=== PATIENT | female | born 1980 | race Caucasian/White ===

== ENCOUNTER 2022-08-13 13:11 | Outpatient (REF) | payer OTHER, SELFPAY ==
[2022-08-13 13:51] LABS: COVID-19 Test Negative (Negative)
== END 2022-08-13 13:12 | disposition home or self-care (01) ==
LOC: HO.LAB 13:11
PROVIDERS: Visit Provider Internal Medicine
DX: Z20.822 Contact with and (suspected) exposure to COVID-19 (principal)
CPT/HCPCS: 87635; C9803

== ENCOUNTER 2025-06-29 12:50 | Outpatient (AMB) | payer OTHER, SELFPAY ==
[2025-06-29 13:03] VITALS: BP 102/60; PULSE 85; RESP 18; TEMP 36.1; O2SAT 99; BMI 21.6
--- NOTE | 2025-06-29 13:03 | A.OFFPC_ITS ---
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 Operator Name: [id number] Information Interpreted: clinical only Accompanied by: Self / Same As Patient Allergies No Known Allergies (No Known Allergies*) Allergy (Unverified 06/29/25 13:17) Medication List - Last Reconciled 06/29/25 by HECTOR Kim meclizine 25 mg PO DAILY PRN Tobacco use date assessed: 06/29/25 Dental Screening Dental Screen Date: 06/29/25 Did you have a dental visit in the last 12 months?: Yes Did you have a dental problem in the last 6 months where you did not have access to dental care?: No Was dental information given to patient?: Patient has dentist 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 HPI Details Previous PCP: ALEXANDR Kaplan Last visit: Reports more than 2 years ago Last PE:same Specialist: no OBGYN:needs a referral mammogram: Reports having one a long time ago, they found a cyst but it was benign Pap smear: Past medical history: no hx Medications:no Family HX:no hx Problem: Reports that she is concern about her weight states that she used to weight a lot more she is not exercising or dieting she has been eating the same as before Reports that she used to weight 150 lbs The patient is 118 lbs today Reports headaches starts last It usually happens once a week It had been continuous since last Throbbing feeling to the left side of head At the temporal region Light affects eyes, and she is bothered by the sounds denies n/v Could tell when headache is coming on Starts with a mild discomfort Reports that she has used ibuprofen, which works depending on the dosage She had vertigo twice last time less than a month ago denies otalgia, but has mild discomfort Everything was spinning around during her episode The vertigo was continues and she had to be in bed Did not matter what position she was in She went to the [facility] She was given meclizine 25 daily PRN with positive effect numbness in her toes all the time, and once in awhile in the right hand. Reports drinking coffee in the mornings only states that she is drinking about 5 cups a day of water Denies drinking alcohol and she does not smoke [facility] Social History Household Members: Significant Other and Children Both parents involved: Yes Caregiver staying overnight: No Housing: House Are you a primary customer care agent to a significant other at home: No Do you presently have visiting nurse or other home services: No Alcohol intake: never Patient Tobacco Use Status: Never used Tobacco e-Cigarette/Vaping Use: Never Used service: No Current occupational status: employed 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 1. Little interest or pleasure in doing things: not at all 2. Feeling down, depressed, or hopeless: not at all 3. Trouble falling or staying asleep, or sleeping too much: several days 4. Feeling tired or having little energy: not at all 5. Poor appetite or overeating: several days 6. Feeling bad about yourself - or that you are a failure or have let yourself or your family down: not at all 7. Trouble concentrating on things, such as reading the newspaper or watching television: not at all 8. Moving or speaking so slowly that other people could have noticed. Or the opposite - being so fidgety or restless that you have been moving around a lot more than usual: not at all 9. Thoughts that you would be better off or of hurting yourself in some way: not at all Total score: 2 Depression Screening Interpretation: Negative Depression Screening Done: Yes 18085 - PHQ-9 Billing: Yes Source: Developed by Drs. Orlin Abdalla, Rox Moctezuma, Osiel Flores and colleagues, with an educational rubén from [employer]. Thrive Questionnaire Date Thrive assessed: 06/29/25 I am a: Patient What is your living situation today?: I have a steady place to live Within the past 12 months, did the food you bought not last and you didn't have the money to get more?: Sometimes True Within the past 12 months, did you worry whether your food would run out before you got money to buy more?: Sometimes True Do you have trouble paying for medicines?: No Do you have trouble getting transportation to medical appointments?: No Do you have trouble paying your heating and electricity bill?: Yes Do you have trouble taking care of your child, family member or friend?: No Do you have trouble with day-to-day activities such as bathing, preparing meals, shopping, managing finances, etc.?: No Are you currently unemployed and looking for a job?: No Are you interested in more education?: Yes Please select the resources that you would like help with: Utilities Currently or been in a relationship where the following occur: No concerns reported THRIVE Score: 3 AUDIT C Alcohol Use Questionnaire (AUDIT-C) 1. How often do you have a drink containing alcohol?: Never 3. How often do you have six or more drinks on one occasion?: Never Total Score: 0 KAVITHA-7 AMB Questionnaire KAVITHA-7 Date KAVITHA - 7 assessed: 06/29/25 Feeling nervous, anxious, or on edge: 1 = Several days Not being able to stop or control worryin = Several days Worrying too much about different things: 1 = Several days Trouble relaxin = Not at all Being so restless that it is hard to sit still: 0 = Not at all Becoming easily annoyed or irritable: 0 = Not at all Feeling afraid as if something awful might happen: 0 = Not at all Total KAVITHA-7 score (0-4 normal; 5-9 mild; 10-14 moderate; 15-21 severe): 3 Source: Developed by Drs. Orlin Abdalla, Rox Moctezuma, Osiel Flores and colleagues, with an educational rubén from [employer]. KAVITHA-7 Assessment Billing KAVITHA-7 Assessment Tool: KAVITHA-7 Assessment 55581 Review of Systems Const Reports headache(s) and Reports weight loss Eyes Denies loss of vision and Reports photophobia ENT Reports Normal hearing present, Reports vertigo, Denies dizziness, Denies otalgia (Mild discomfort intermittently), Reports headache(s), Denies hearing loss, Reports neck pain (Posterior neck tension), Denies tinnitus, Denies sinus pain and Denies sore throat Card Denies chest pain, Denies leg edema and Denies lightheadedness Resp Denies cough, Denies hemoptysis and Denies wheezing GI Denies abdominal pain, Denies melena, Denies constipation, Denies diarrhea and Denies vomiting Denies urinary frequency, Denies dysuria and Denies urinary urgency Musc Denies arthralgias, Denies joint swelling, Reports neck pain (Posterior neck tension), Reports numbness (Bilateral feet and occasional right hand) and Denies tingling Neuro Reports Normal hearing present, Denies Abnormal speech present, Denies behavioral changes, Reports vertigo, Denies dizziness, Reports headache(s), Denies loss of vision, Denies memory loss, Reports numbness (Bilateral feet and occasional right hand) and Denies tingling Psych Denies anxiety, Denies behavioral changes, Denies depression, Denies memory loss and Denies panic attacks Nasir/Lymph Denies easy bleeding and Denies easy bruising Aller/Immun Denies wheezing Physical exam (Primary Care) Vital Signs: Last Vital Signs Temp 97 F 06/29/25 13:03 Pulse 85 06/29/25 13:03 Resp 18 06/29/25 13:03 BP 102/60 06/29/25 13:03 Pulse Ox 99 06/29/25 13:03 Oxygen Delivery Method Room Air 06/29/25 13:03 BMI result Body Mass Index 21.6 Tobacco/Smoking Status: Tobacco use Status Tobacco use date assessed 06/29/25 06/29/25 13:11 Patient Tobacco Use Status Never used Tobacco 06/29/25 13:11 e-Cigarette/Vaping Use Never Used 06/29/25 13:11 PHQ-9: PHQ-9 Score PHQ-9: Total score 2 06/29/25 13:20 Depression Screening Interpretation: Negative Thrive Assessment: Date of Thrive Assessment Date Thrive assessed 06/29/25 06/29/25 13:11 Currently or been in a relationship where the following occur: No concerns reported Const General: healthy appearing, no acute distress, alert and awake Nutritional Appearance: well nourished Orientation/consciousness: oriented to person, oriented to place and oriented to time HENMT Ears: TM's normal bilaterally General nose exam: Normal nasal mucous membranes and turbinates present Eyes Conjunctivae: conjunctivae normal Sclerae: sclerae normal Pupils: Equal, round and reactive pupils present EOM: EOMs intact bilaterally and No Nystagmus present Direct Ophthalmoscopy: photophobia Neck Neck: Yes no lymphadenopathy and Yes no JVD Thyroid: Thyroid normal Carotids: no bruits Resp Effort & Inspection: normal respiratory effort and not tachypneic Auscultation: no crackles, no rales, no rhonchi and no wheezes Cardio Rate: regular rate Rhythm: regular rhythm Heart sounds: S1 normal heart sound present, S2 normal heart sound present, no murmurs and normal S1 and S2 GI Palpation (GI): Soft to palpation, nontender, no hepatomegaly and no splenomegaly Auscultation: normal bowel sounds General: Yes no CVA tenderness Back/Spine/Pelvis Back: no CVA tenderness Skin General skin exam: no rashes or lesions noted and dry skin Neuro General: oriented to person, oriented to place, oriented to time, no focal motor deficits and CN's II-XI intact bilaterally Cranial nerves: Yes Equal, round and reactive pupils present, Yes Normal hearing present and No Nystagmus present Speech: No Abnormal speech present Gait exam (Neuro): Normal gait present and not ataxic Motor exam (neuro): 5/5 motor strength present throughout and no tremor noted Coordination: [id number] test normal and Romberg test negative Extrem Right upper extremity: full ROM Left upper extremity: full ROM Right lower extremity: full ROM; no edema Left lower extremity: full ROM; no edema Psych Mental Status: mental status grossly normal Speech and movement: Normal speech and movement present Affect: normal affect Attitude: cooperative Thought process: Normal thought process present Coding Level of Care Code New Pt Level 4 (65617) Diagnoses Migraine with status migrainosus, not intractable, unspecified migraine type G43.901 Migraine type: unspecified Status migrainosus presence: with status migrainosus Intractability: not intractable Weight loss R63.4 Vertigo R42 Numbness and tingling of both feet R20.0; R20.2 Additional Codes PHQ-9 - 13538 - PHQ-9 Billing: Yes ([id number]) KAVITHA-7 Assessment Billing - KAVITHA-7 Assessment Tool: KAVITHA-7 Assessment 69169 ([id number]) Time Spent (min) 39 Assessment & Plan Assessment & Plan (1) Migraines: Code(s): G43.909 - Migraine, unspecified, not intractable, without status migrainosus Category: Medical Qualifiers: Migraine type: unspecified Status migrainosus presence: with status migrainosus Intractability: not intractable Qualified Code(s): G43.901 - Migraine, unspecified, not intractable, with status migrainosus (2) Weight loss: Code(s): R63.4 - Abnormal weight loss Category: Medical (3) Vertigo: Code(s): R42 - Dizziness and giddiness Category: Medical (4) Numbness and tingling of both feet: Code(s): R20.0 - Anesthesia of skin; R20.2 - Paresthesia of skin Category: Medical Plan The patient will undergo blood work to assess for potential deficiencies such as vitamin and electrolytes, which may be contributing to her symptoms. For headache management, sumatriptan 25 mg is prescribed, with instructions not to exceed 8 doses in 24 hours and to use ibuprofen as the first line of treatment. Magnesium and vitamin B2 supplements are recommended to help with headache prevention. The patient is advised to follow up in 8 weeks for a complete physical examination and to review lab results. She is instructed to go to the hospital for lab work, which requires fasting for 8 to 12 hours. Patient was informed and verbally consented to the use of an ambient scribe for clinic note documentation during this visit. Orders: Orders CORNELL Reflex Titer and Pattern Today G490 - Migraine, unspecified, not intractable, without status migrainosus, R20.0 - Anesthesia of skin, R20.2 - Paresthesia of skin, R42 - Dizziness and giddiness, R63.4 - Abnormal weight loss Lipid Panel Today G4909 - Migraine, unspecified, not intractable, without status migrainosus, R20.0 - Anesthesia of skin, R20.2 - Paresthesia of skin, R42 - Dizziness and giddiness, R63.4 - Abnormal weight loss Vitamin D 25-OH Total Today G43.909 - Migraine, unspecified, not intractable, without status migrainosus, R20.0 - Anesthesia of skin, R20.2 - Paresthesia of skin, R42 - Dizziness and giddiness, R63.4 - Abnormal weight loss CRP High Sensitivity Today G490 - Migraine, unspecified, not intractable, without status migrainosus, R20.0 - Anesthesia of skin, R20.2 - Paresthesia of skin, R42 - Dizziness and giddiness, R63.4 - Abnormal weight loss Comprehensive [place]. Panel Fast Today G43.909 - Migraine, unspecified, not intractable, without status migrainosus, R20.0 - Anesthesia of skin, R20.2 - Paresthesia of skin, R42 - Dizziness and giddiness, R63.4 - Abnormal weight loss Hepatitis A,B,C Profile Today G4.90 - Migraine, unspecified, not intractable, without status migrainosus, R20.0 - Anesthesia of skin, R20.2 - Paresthesia of skin, R42 - Dizziness and giddiness, R63.4 - Abnormal weight loss Hemoglobin A1c Today R20.0 - Anesthesia of skin, R20.2 - Paresthesia of skin, R42 - Dizziness and giddiness, R63.4 - Abnormal weight loss TSH reflex Free T4 Today G43.909 - Migraine, unspecified, not intractable, without status migrainosus, R20.0 - Anesthesia of skin, R20.2 - Paresthesia of skin, R42 - Dizziness and giddiness, R63.4 - Abnormal weight loss UA CC w/rflx Micro + Cult Today G43.909 - Migraine, unspecified, not intractable, without status migrainosus, R20.0 - Anesthesia of skin, R20.2 - Paresthesia of skin, R42 - Dizziness and giddiness, R63.4 - Abnormal weight loss Erythrocyte Sedimentation Rate Today G43.909 - Migraine, unspecified, not intractable, without status migrainosus, R20.0 - Anesthesia of skin, R20.2 - Paresthesia of skin, R42 - Dizziness and giddiness, R63.4 - Abnormal weight loss Complete Blood Count Auto Diff Today G43.909 - Migraine, unspecified, not intractable, without status migrainosus, R20.0 - Anesthesia of skin, R20.2 - Pa resthesia of skin, R42 - Dizziness and giddiness, R63.4 - Abnormal weight loss HIV Ab/Ag Today G43.909 - Migraine, unspecified, not intractable, without status migrainosus, R20.0 - Anesthesia of skin, R20.2 - Paresthesia of skin, R42 - Dizziness and giddiness, R63.4 - Abnormal weight loss CT NG by PCR Urine Today G43.909 - Migraine, unspecified, not intractable, without status migrainosus, R20.0 - Anesthesia of skin, R20.2 - Paresthesia of skin, R42 - Dizziness and giddiness, R63.4 - Abnormal weight loss Medications: New magnesium oxide 400 mg PO DAILY 90 tabs 2RF sumatriptan succinate do not exceed 8 doses per 24 hrs 25 mg PO Q2-4H PRN 15 tabs 3RF migraine headache 30 days Patient Instructions: - Take sumatriptan as prescribed for headaches, do not exceed 8 doses in 24 hours. - Use ibuprofen as the first line of treatment for headaches. - Take magnesium at night and vitamin B2 during the day to help prevent headaches. - Go to the hospital for lab work, fasting for 8 to 12 hours beforehand. - Follow up in 8 weeks for a complete physical examination and lab review.
--- OUTSIDE RECORDS SUMMARY | 2025-06-29 13:23 | XMS_ITS | Clinical Summary ---
Author Organization [facility] ity Address [address] [place] [address] Care Team Providers Care Compliance Reviewer Name Role Phone Unavailable Primary Care Provider Unavailabl e Social History Tobacco Use Types Packs/Day Years Used Date Smoking Tobacco: Never Assessed Comments Unknown Sex and Gender Information Value Date Recorded Sex Assigned at Not on file Legal Sex Female 5:02 AM EST Gender Identity Not on file Sexual Orientation Not on file Plan of Treatment Health Maintenance Due Date Last Done Comments Breast Cancer Screening 1979 DTaP,Tdap,and Td Vaccines (1 - Tdap) 1998 Hepatitis B Vaccines (1 of 3 - 19+ 3-dose series) 1998 Cervical Cancer Screening: P ap Smear 2000 Colorectal Cancer Screening: Colonoscopy 10/28/2022 HIV Screening 10/28/2022 Hepatitis C Screening 10/28/2022 Social Influencers of Health Screening 10/28/2022 COVID-19 Vaccine (2023-2 5 season) 2024 Depression Screening 11/25/2024 Influenza Vaccine (#1) 2025 HIB Vaccines Aged Out No longer eligi ble based on patient's age to complete this topic HPV Vaccines Aged Out No longer eligi ble based on patient's age to complete this topic Hepatitis A Vaccines Aged Out No long er eligible based on patient's age to complete this topic IPV Vaccines Aged Out No longer eligi ble based on patient's age to complete this topic MMR Vaccines Aged Out No longer eligi ble based on patient's age to complete this topic Meningococcal ACWY Vaccine Aged Out N o longer eligible based on patient's age to complete this topic Meningococcal B Vaccine Aged Out No l onger eligible based on patient's age to complete this topic Pneumococcal Vaccine: Pediat rics (0 to 5 Years) and At-Risk Patients (6 to 49 Years) Aged Out No longer eligible b ased on patient's age to complete this topic RSV Immunization Patients Un addis 20 months Aged Out No longer eligible b ased on patient's age to complete this topic Varicella Vaccines Aged Out No longer eligible based on patient's age to complete this topic
== END 2025-06-29 14:06 | disposition home or self-care (01) ==
LOC: HO.HMCH 12:51
PROVIDERS: PCP Physician Assistant
DX: G43.901 Migraine, unspecified, not intractable, with status migrainosus (principal); R63.4 Abnormal weight loss; R42 Dizziness and giddiness; R20.0 Anesthesia of skin; R20.2 Paresthesia of skin

== ENCOUNTER → 2025-06-29 12:50 | Outpatient (BNVA) | payer OTHER, SELFPAY | PROVIDERS: PCP Physician Assistant | DX: G43.901 Migraine, unspecified, not intractable, with status migrainosus (principal); R63.4 Abnormal weight loss; R42 Dizziness and giddiness; R20.0 Anesthesia of skin; R20.2 Paresthesia of skin | CPT/HCPCS: 96127; 99202 ==

== ENCOUNTER 2025-06-30 09:46 | Outpatient (REF) | payer OTHER, SELFPAY ==
[2025-06-30 10:05] LABS: MANUAL DIFF FLAG NO
--- OUTSIDE RECORDS SUMMARY | 2025-06-30 10:13 | XMS_ITS | Clinical Summary ---
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
[2025-06-30 10:46] LABS: Hematocrit 37.7 % (37.0-47.0); Hemoglobin 13.0 g/dl (12.0-16.0); Imm Gran Abs Auto 0.02 X10*3/uL (0.00-0.03); Imm Gran Pct Auto 0.3 % (0.0-0.4); Lymphocytes Absolute Auto 1.7 X10*3/uL (1.2-4.9); Mean Corpuscular HGB Conc 34.5 g/dl (31.0-35.0); Mean Corpuscular Hemoglobin 28.3 pg (27.0-33.0); Mean Corpuscular Volume 82.0 fL (80.0-98.0); NRBC Abs Auto 0.000 X10*3/uL (0.0-0.012); NRBC Pct Auto 0.0 /100WBC (0.0-0.2); Platelet Count 240 X10*3/uL (160-400); Red Blood Count 4.60 X10*6/uL (4.20-5.50); White Blood Count 7.4 X10*3/uL (4.8-10.8)
[2025-06-30 10:53] LABS: Hemoglobin A1C 90.6187 umol/L; Total Hemoglobin (HGBA1C) 3438.1565 umol/L
[2025-06-30 11:05] LABS: Appearance Urine Clear; Glucose Urine UA Negative (Negative); PH 5.5 (5.0-9.0); Specific Gravity - Urine 1.015 (1.005-1.025); UMIC TRIGGER UACC YES
[2025-06-30 11:34] LABS: Alanine Aminotransferase 13 U/L (0-31); Albumin Level 4.0 g/dL (3.5-5.0); Alkaline Phosphatase 68 U/L (39-117); Anion Gap 10 (12-20); Aspartate Amino Transferase 25 U/L (5-31); Blood Urea Nitrogen 9 mg/dL (9-16); Calcium 8.6 mg/dL (8.4-10.2); Carbon Dioxide 25 mmol/L (22-29); Chloride 110 mmol/L (96-108); Cholesterol 147 mg/dL (<200); Estimated Glomerular Filt Rate > 60; HDL Cholesterol 42 mg/dL (>40); Potassium 3.9 mmol/L (3.3-5.1); Sodium 141 mmol/L (135-145); Total Protein 6.8 g/dL (6.5-8.0); Triglycerides 141 mg/dL (<150)
[2025-06-30 11:48] LABS: HBS Num1 0.11 mIU/mL (0-7.99); HBc Num1 0.08 S/CO (0.00-0.79); HBsAGNum1 0.43 S/CO (0.00-0.99); HIV Num 1 0.12 S/CO (0.00-0.99); Hepatitis A Antibody IgM 0.21 Index (0-0.79); Hepatitis B Surface Antigen Negative (Negative); ~HepC Num1 0.52 S/CO (0.00-0.79); ~Hepatitis A Antibody IgM Nonreactive (Nonreactive); ~Hepatitis B Surface Antibody NONREACTIVE (Nonreactive); ~Hepatitis C Antibody Nonreactive (Nonreactive)
[2025-06-30 12:30] LABS: CT PCR Urine NOT DETECTED (Not Detect.); NG PCR Urine NOT DETECTED (Not Detect.)
[2025-07-03 12:02] LABS: Anti Nuclear Antibody Screen NEGATIVE (NEGATIVE)
== END 2025-06-30 09:47 | disposition home or self-care (01) ==
LOC: HO.LAB 09:46
DX: R42 Dizziness and giddiness (principal); G43.909 Migraine, unspecified, not intractable, without status migrainosus; R63.4 Abnormal weight loss; R20.0 Anesthesia of skin; R20.2 Paresthesia of skin; Z01.84 Encounter for antibody response examination; Z11.3 Encounter for screening for infections with a predominantly sexual mode of transmission; Z11.8 Encounter for screening for other infectious and parasitic diseases; Z11.59 Encounter for screening for other viral diseases; Z11.4 Encounter for screening for human immunodeficiency virus [HIV]
CPT/HCPCS: 80053; 80061; 81001; 81003; 82306; 83036; 84443; 85025; 85652; 86038; 86141; 86704; 86706; 86709; 86803; 87340; 87389; 87491; 87591

== ENCOUNTER 2025-08-30 08:58 | Outpatient (AMB) | payer OTHER, SELFPAY ==
[2025-08-30 09:14] VITALS: BP 100/60; PULSE 75; RESP 18; TEMP 36.2; O2SAT 98; BMI 21.6
--- NOTE | 2025-08-30 09:14 | MHC.PC.OV ---
Vital Signs 08/30/25 09:14 Height 5 ft 2 in Weight 118 lb 2 oz BMI 21.6 BP 100/60 Blood Pressure Location Lt brachial Position Sitting Respiration 18 Pulse 75 Pulse Source Pulse Oximeter Temp 97.1 F Temp Source Temporal Artery Scan Pulse Oximetry (%) 98 Oxygen Delivery Method Room Air Intake Visit Reasons: annual physical Safety Deposit Clerk Required: Yes Safety Deposit Clerk Language: Cable Splicing Technician Name: [id number]/Kiko Accompanied by: Self / Same As Patient Allergies No Known Allergies (No Known Allergies*) Allergy (Verified 08/30/25 09:39) Medication List - Last Reconciled 08/30/25 by HECTOR Kim magnesium oxide 400 mg PO DAILY meclizine 25 mg PO DAILY PRN sumatriptan succinate 25 mg PO Q2-4H PRN 30 days Tobacco use date assessed: 08/30/25 Dental Screening Dental Screen Date: 08/30/25 Did you have a dental visit in the last 12 months?: Yes Did you have a dental problem in the last 6 months where you did not have access to dental care?: No Was dental information given to patient?: Patient has dentist HPI annual physical HPI Details Dentist: up to date Eye: up to date Snellen: Right: Left: Corrected vision: reading glasses STI screening: completed and was negative Colonoscopy: cologuard ordered mammogram: ordered Pap Smer: referral placed PHQ-9: Flu: up to date COVID:x2 Tdap:2019 Diet: regular Exercise: no The patient is a 44-year-old female presenting for a wellness visit and evaluation of abdominal tenderness and urinary urgency. The abdominal tenderness was noted during the physical examination, with pain reported upon palpation in specific areas of the abdomen. The patient denies constipation and reports no associated gastrointestinal symptoms such as blood in stool or hemorrhoids. The urinary urgency has been present for about a month, characterized by a sudden need to urinate with associated lower abdominal pain. The patient denies any burning sensation during urination. Preventative care measures discussed include colon cancer screening with a stool test, mammogram, and Pap smear. The patient has not had a mammogram in over three years and a Pap smear in a long time, indicating they are due for these screenings. 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 Current occupational exposures/hazards: No Cognitive needs: No Hearing needs: No Vision needs: No Questionnaire Thrive Questionnaire Date Thrive assessed: 06/22/25 I am a: Patient What is your living situation today?: I have a steady place to live Within the past 12 months, did the food you bought not last and you didn't have the money to get more?: Sometimes True Within the past 12 months, did you worry whether your food would run out before you got money to buy more?: Sometimes True Do you have trouble paying for medicines?: No Do you have trouble getting transportation to medical appointments?: No Do you have trouble paying your heating and electricity bill?: Yes Do you have trouble taking care of your child, family member or friend?: No Do you have trouble with day-to-day activities such as bathing, preparing meals, shopping, managing finances, etc.?: No Are you currently unemployed and looking for a job?: No Are you interested in more education?: Yes Please select the resources that you would like help with: Utilities Currently or been in a relationship where the following occur: No concerns reported THRIVE Score: 3 KAVITHA-7 AMB Questionnaire KAVITHA-7 Date KAVITHA - 7 assessed: 06/29/25 Source: Developed by Drs. Orlin Abdalla, Rox Moctezuma, Osiel Flores and colleagues, with an educational rubén from [employer]. Review of Systems Const Reports headache(s) (reports that this has been mild and infrequent) Eyes Denies loss of vision ENT Denies vertigo, Denies dizziness, Reports headache(s) (reports that this has been mild and infrequent) and Denies sore throat Card Denies chest pain, Denies leg edema and Denies lightheadedness Resp Denies cough, Denies hemoptysis and Denies wheezing GI Denies abdominal pain, Denies melena, Denies constipation, Denies diarrhea and Denies vomiting Denies urinary frequency, Denies dysuria and Reports urinary urgency Musc Denies arthralgias, Denies joint swelling, Denies numbness and Denies tingling Skin/Breast Denies lesions and Denies rash Neuro Denies Abnormal speech present, Denies behavioral changes, Denies vertigo, Denies dizziness, Reports headache(s) (reports that this has been mild and infrequent), Denies loss of vision, Denies memory loss, Denies numbness and Denies tingling Psych Denies anxiety, Denies behavioral changes, Denies depression, Denies memory loss and Denies panic attacks Nasir/Lymph Denies easy bleeding and Denies easy bruising Aller/Immun Denies wheezing Physical exam (Primary Care) Vital Signs: Last Vital Signs Temp 97.1 F 08/30/25 09:14 Pulse 75 08/30/25 09:14 Resp 18 08/30/25 09:14 BP 100/60 08/30/25 09:14 Pulse Ox 98 08/30/25 09:14 Oxygen Delivery Method Room Air 08/30/25 09:14 BMI result Body Mass Index 21.6 Tobacco/Smoking Status: Tobacco use Status Tobacco use date assessed 08/30/25 08/30/25 09:17 Patient Tobacco Use Status Never used Tobacco 08/30/25 09:17 e-Cigarette/Vaping Use Never Used 08/30/25 09:17 Thrive Assessment: Date of Thrive Assessment Date Thrive assessed 06/22/25 08/30/25 09:17 Currently or been in a relationship where the following occur: No concerns reported Const General: healthy appearing, no acute distress, alert and awake Nutritional Appearance: well nourished Orientation/consciousness: oriented to person, oriented to place and oriented to time HENMT Ears: TM's normal bilaterally General nose exam: Normal nasal mucous membranes and turbinates present Eyes Conjunctivae: conjunctivae normal Sclerae: sclerae normal Pupils: Equal, round and reactive pupils present Neck Neck: Yes no lymphadenopathy and Yes no JVD Thyroid: Thyroid normal Carotids: no bruits Resp Effort & Inspection: normal respiratory effort and not tachypneic Auscultation: no crackles, no rales, no rhonchi and no wheezes Cardio Rate: regular rate Rhythm: regular rhythm Heart sounds: no murmurs and normal S1 and S2 GI Palpation (GI): Soft to palpation, Tenderness to palpation present (GI) in the LLQ, in the RLQ and suprapubicly, no hepatomegaly and no splenomegaly Auscultation: normal bowel sounds General: Yes no CVA tenderness Back/Spine/Pelvis Back: no CVA tenderness Skin General skin exam: no rashes or lesions noted and dry skin Neuro General: oriented to person, oriented to place, oriented to time and CN's II-XI intact bilaterally Cranial nerves: Yes Equal, round and reactive pupils present Speech: No Abnormal speech present Gait exam (Neuro): Normal gait present Motor exam (neuro): no tremor noted Deep tendon reflexes (DTR's): Right triceps reflex intensity grade: 2+, Left triceps reflex intensity grade: 2+, Rt Biceps (C5, C6): 2+, Left biceps reflex intensity grade: 2+, Right brachioradialis reflex intensity grade: 2+, Left brachioradialis reflex intensity grade: 2+, Right patellar reflex intensity grade: 2+ and Left patellar reflex intensity grade: 2+ Extrem Right upper extremity: full ROM Left upper extremity: full ROM Right lower extremity: full ROM; no edema Left lower extremity: full ROM; no edema Psych Mental Status: mental status grossly normal Speech and movement: Normal speech and movement present Affect: normal affect Attitude: cooperative Thought process: Normal thought process present Results Reviewed Results Reviewed: Laboratory Tests 06/30/25 06/30/25 09:56 10:03 WBC 7.4 RBC 4.60 Hgb 13.0 Hct 37.7 MCV 82.0 MCH 28.3 MCHC 34.5 RDW 12.9 Plt Count 240 Sodium 141 Potassium 3.9 Chloride 110 H Carbon Dioxide 25 Anion Gap 10 L BUN 9 Creatinine 0.63 Estimated GFR > 60 Fasting Glucose 86 Estimat Average Glucose 85 Hemoglobin A1c % 4.6 Calcium 8.6 Total Bilirubin 1.8 H AST 25 ALT 13 Alkaline Phosphatase 68 C-React Prot High Sens 0.6 Total Protein 6.8 Albumin 4.0 Triglycerides 141 Cholesterol 147 LDL Cholesterol, Calc 77 HDL Cholesterol 42 25-OH Vitamin D Total 30.0 TSH 2.24 Urine Color Yellow Urine Appearance Clear Urine pH 5.5 Ur Specific [place] 1.015 Urine Protein Negative Urine Glucose (UA) Negative Urine Ketones Negative Urine Blood Negative Urine Nitrite Negative Ur Leukocyte Esterase Trace H Urine RBC 0-2 Urine WBC 0-5 Ur Squamous Epith Cells 6-10 Urine Bacteria Trace Hyaline Casts 0-2 Ur N gonorrhoeae DNA (PCR) NOT DETECTED CORNELL Screen NEGATIVE Coding Level of Care Code Est Pt Prev Care 40-64y(30388) Diagnoses Annual physical exam Z00.00 Migraine with status migrainosus, not intractable, unspecified migraine type G43.901 Migraine type: unspecified Status migrainosus presence: with status migrainosus Intractability: not intractable Weight loss R63.4 Vertigo R42 Numbness and tingling of both feet R20.0; R20.2 Bilateral lower abdominal pain R10.31; R10.32 Cervical cancer screening Z12.4 Suprapubic abdominal pain R10.24 Urinary urgency R39.15 Time Spent (min) 39 Assessment & Plan Assessment & Plan (1) Annual physical exam: Code(s): Z00.00 - Encounter for general adult medical examination without abnormal findings Category: Medical Plan: The patient is advised to undergo a cologuard test for colon cancer screening due to her age and low risk profile. This non-invasive test is an alternative to colonoscopy and will be arranged for the patient. Mammogram ordered an OBGYN referral placed. Preventative guidelines and recent labs reviewed with the patient. (2) Migraines: Code(s): G43.909 - Migraine, unspecified, not intractable, without status migrainosus Category: Medical Qualifiers: Migraine type: unspecified Status migrainosus presence: with status migrainosus Intractability: not intractable Qualified Code(s): G43.901 - Migraine, unspecified, not intractable, with status migrainosus Plan: Reports this has been infrequent and mild in nature. Continue magnesium oxide 400 mg at bedtime, NSAIDs OTC, and sumatriptan succinate 25 mg Q 2-4 hours p.r.n. (3) Weight loss: Code(s): R63.4 - Abnormal weight loss Category: Medical Plan: Patient reports with lost on her previous visit but has not been to the doctors in a while. All of workup has been benign so far. She is currently complain of lower abdominal pain. Abdominal and pelvic ultrasounds are ordered to further evaluate. (4) Vertigo: Code(s): R42 - Dizziness and giddiness Category: Medical Plan: This has subsided. Meclizine 25 mg p.r.n. can be used if returned. (5) Numbness and tingling of both feet: Code(s): R20.0 - Anesthesia of skin; R20.2 - Paresthesia of skin Category: Medical Plan: Patient denies numbness and tingling in her feet today. All her labs that were ordered to evaluate this has been normal so far. We will continue to monitor (6) Bilateral lower abdominal pain: Code(s): R10.31 - Right lower quadrant pain; R10.32 - Left lower quadrant pain Category: Medical Plan: An abdominal ultrasound was ordered to further evaluate (7) Cervical cancer screening: Code(s): Z12.4 - Encounter for screening for malignant neoplasm of cervix Category: Medical Plan: Patient was referred to OBGYN (8) Suprapubic abdominal pain: Code(s): R10.24 - Suprapubic pain Category: Medical Plan: pelvic ultrasound was ordered to further evaluate. CBC and UA ordered (9) Urinary urgency: Code(s): R39.15 - Urgency of urination Category: Medical Plan The patient to follow up in 2 months or sooner for any concerns. Orders: Orders UA CC w/rflx Micro + Cult Today R10.24 - Suprapubic pain Complete Blood Count Auto Diff Today R10.24 - Suprapubic pain US abdomen complete Today R10.24 - Suprapubic pain, R10.31 - Right lower quadrant pain, R10.32 - Left lower quadrant pain MM tomosynthesis screening BI Today Z12.31 - Encounter for screening mammogram for malignant neoplasm of breast HCG Quantitative Today R10.24 - Suprapubic pain, R10.31 - Right lower quadrant pain, R10.32 - Left lower quadrant pain US pelvic complete Today R10.24 - Suprapubic pain, R10.31 - Right lower quadrant pain, R10.32 - Left lower quadrant pain Referrals CURRICULUM SUPERVISOR Referral Z12.4 - Encounter for screening for malignant neoplasm of cervix Cologuard Test Z12.11 - Encounter for screening for malignant neoplasm of colon, Z12.12 - Encounter for screening for malignant neoplasm of rectum
--- OUTSIDE RECORDS SUMMARY | 2025-08-30 09:55 | XMS_ITS | Clinical Summary ---
Author Organization [facility] ity Address [address] [place] [address] Care Team Providers Care Cardiac Cath Tech Name Role Phone Unavailable Primary Care Provider [...] Last Done Comments Breast Cancer Screening 1979 Colorectal Cancer Screening: Colonoscopy 1979 DTaP,Tdap,and Td Vaccines (1 - Tdap) 1998 Hepatitis B Vaccines (1 of 3 - 19+ 3-dose series) 1998 Cervical Cancer Screening: P ap Smear 2000 HPV Vaccines (1 - 3-dose SCD M series) 2006 HIV Screening 10/28/2022 Hepatitis C Screening 10/28/2022 Social Influencers of Health Screening 10/28/2022 Depression Screening 11/25/2024 COVID-19 Vaccine ( - 2023-2 5 season) 2025 Influenza Vaccine (#1) 2025 RSV Immunization Adult Patie nts (1 - 1-dose 75+ series) 2054 HIB Vaccines Aged Out No longer eligi [...]
== END 2025-08-30 10:12 | disposition home or self-care (01) ==
LOC: HO.HMCH 08:59
DX: Z00.00 Encounter for general adult medical examination without abnormal findings (principal); G43.901 Migraine, unspecified, not intractable, with status migrainosus; R63.4 Abnormal weight loss; R42 Dizziness and giddiness; R20.0 Anesthesia of skin; R20.2 Paresthesia of skin; R10.31 Right lower quadrant pain; R10.32 Left lower quadrant pain; Z12.4 Encounter for screening for malignant neoplasm of cervix; R10.24 Suprapubic pain; R39.15 Urgency of urination

== ENCOUNTER → 2025-08-30 08:58 | Outpatient (BNVA) | payer OTHER, SELFPAY | PROVIDERS: PCP Physician Assistant | DX: Z00.00 Encounter for general adult medical examination without abnormal findings (principal); R39.15 Urgency of urination; G43.901 Migraine, unspecified, not intractable, with status migrainosus; R63.4 Abnormal weight loss; R42 Dizziness and giddiness; R20.0 Anesthesia of skin; R20.2 Paresthesia of skin; R10.31 Right lower quadrant pain; R10.32 Left lower quadrant pain; R10.24 Suprapubic pain | CPT/HCPCS: 99396 ==

== ENCOUNTER 2025-09-16 09:05 | Outpatient (REF) | payer OTHER, SELFPAY ==
--- NOTE | ~2025-09-16 | US_ITS ---
EXAMINATION: US ABDOMEN COMPLETE CLINICAL INFORMATION: Suprapubic pain.. COMPARISON: None available. TECHNIQUE: Real-time ultrasound of the abdomen using a curvilinear transducer with grayscale and color Doppler technique. FINDINGS: PANCREAS: No peripancreatic fluid collections. No main pancreatic ductal dilatation. ABDOMINAL AORTA: The proximal, mid, and distal segments are normal in caliber. INFERIOR VENA CAVA: Visualized portions are normal. LIVER: Liver measures 14 cm. No nodular surface. Coarse echotexture. No solid or cystic lesion. No intrahepatic biliary ductal dilatation. GALLBLADDER: Multiple intraluminal hyperechoic abnormality is without posterior shadowing layering in a dependent portion. No distention. No pericholecystic fluid collection or gallbladder wall thickening. No sonographic Villarreal's sign elicited by the technologist. COMMON BILE DUCT: 4 mm. RIGHT KIDNEY: 10 cm. Normal echotexture. Normal renal cortical thickness. No hydronephrosis. There is a 1.2 cm exophytic anechoic lesion in the lower pole without septations or flow on color Doppler interrogation. LEFT KIDNEY: 11 cm. Normal echotexture. Normal renal cortical thickness. No hydronephrosis. There is a 1.2 cm anechoic lesion at the corticomedullary junction of the lower pole without septations or flow on color Doppler interrogation.. SPLEEN: 11 cm. No gross solid or cystic lesion. FREE FLUID: None. US/US abdomen complete IMPRESSION: Cholelithiasis without sonographic abnormalities for acute cholecystitis. No choledocholithiasis. 1.2 cm simple cyst, both kidneys. No hydronephrosis. No ascites. Electronically signed by: Bruce Jeff MD 09/16/2025 09:55 AM EDT
--- OUTSIDE RECORDS SUMMARY | 2025-09-16 09:55 | XMS_ITS | Clinical Summary ---
Author Organization [facility] ity Address [address] [place] [address] Care Team Providers Care Counter Tender Name Role Phone Unavailable Primary Care Provider [...]
== END 2025-09-16 09:06 | disposition home or self-care (01) ==
LOC: HO.US 09:05
DX: R10.24 Suprapubic pain (principal); R10.31 Right lower quadrant pain; R10.32 Left lower quadrant pain
CPT/HCPCS: 76700

== ENCOUNTER → 2025-09-16 09:06 | Outpatient (BNV) | payer OTHER, SELFPAY | PROVIDERS: Visit Provider Radiology Diagnostic Radiology | DX: K80.20 Calculus of gallbladder without cholecystitis without obstruction (principal); N28.1 Cyst of kidney, acquired | CPT/HCPCS: 76700 ==

== ENCOUNTER 2025-10-28 10:04 | Outpatient (REF) | payer OTHER, SELFPAY ==
--- NOTE | ~2025-10-28 | MM_ITS ---
EXAMINATION: MM SCREENING DIGITAL BREAST TOMOSYNTHESIS, BILATERAL CLINICAL INFORMATION: Screening. Asymptomatic. COMPARISON: Mammography: Comparison is made with available priors TECHNIQUE: Digital breast mammography with tomosynthesis is performed in both the craniocaudal and mediolateral oblique views along with computer-aided detection (CAD). FINDINGS: The breasts are heterogeneously dense, which may obscure small masses. Left: Circumscribed oval mass upper outer breast middle to posterior depth. No suspicious calcifications or other abnormal findings. Right: Asymmetry retroareolar region with questionable distortion anterior to middle depth on MLO view. Asymmetry medial breast posterior depth on CC view. Oval mass upper outer breast anterior middle depth on CC view. No suspicious calcifications or other abnormal findings. MM/MM tomosynthesis screening BI IMPRESSION: Additional imaging is recommended ASSESSMENT: BI-RADS Category 0: Incomplete - Need additional Imaging Evaluation RECOMMENDATION: 1. Additional views of the bilateral breast. 2. Targeted ultrasound if warranted after review of the additional views. 3. Radiology department staff will contact the patient for additional imaging. Additional Imaging required Electronically signed by: Lola Corcoran DO 10/29/2025 06:04 PM [place]
--- OUTSIDE RECORDS SUMMARY | 2025-10-28 11:56 | XMS_ITS | Clinical Summary ---
Author Organization [facility] ity Address [address] [place] [address] Care Team Providers Care Director Enterprise Data Architecture Name Role Phone Unavailable Primary Care Provider [...] Cervical Cancer Screening: P ap Smear 2000 HIV Screening 10/28/2022 Hepatitis C Screening 10/28/2022 Social Influencers of Health Screening 10/28/2022 Depression Screening 11/25/2024 COVID-19 Vaccine (1 - 2024-2 6 season) 2025 Influenza Vaccine (#1) 2025 RSV [...]
== END 2025-10-28 10:05 | disposition home or self-care (01) ==
LOC: HO.MAMMO 10:04
DX: Z12.31 Encounter for screening mammogram for malignant neoplasm of breast (principal)
CPT/HCPCS: 77063; 77067

== ENCOUNTER → 2025-10-28 11:45 | Outpatient (BNV) | payer OTHER, SELFPAY | PROVIDERS: Visit Provider Internal Medicine | DX: Z12.31 Encounter for screening mammogram for malignant neoplasm of breast (principal) | CPT/HCPCS: 77063; 77067 ==

== ENCOUNTER 2025-11-03 09:05 | Outpatient (AMB) | payer OTHER, SELFPAY ==
[2025-11-03 09:27] VITALS: BP 92/66; PULSE 76; RESP 18; O2SAT 98; BMI 21.8
--- NOTE | 2025-11-03 09:27 | A.OFFPC_ITS ---
Vital Signs 11/03/25 09:27 Height 5 ft 2 in Weight 119 lb 4 oz BMI 21.8 BP 92/66 Blood Pressure Location Lt brachial Position Sitting Respiration 18 Pulse 76 Pulse Source Pulse Oximeter Temp Source Temporal Artery Scan Pulse Oximetry (%) 98 Oxygen Delivery Method Room Air Intake Visit Reasons: lower abdominal pain Two Way Radio Installer Required: Yes Two Way Radio Installer Name: [id number] Accompanied by: Self / Same As Patient Allergies No Known Allergies (No Known Allergies*) Allergy (Verified 11/03/25 09:54) Medication List - Last Reconciled 11/03/25 by HECTOR Kim magnesium oxide 400 mg PO DAILY meclizine 25 mg PO DAILY PRN sumatriptan succinate 25 mg PO Q2-4H PRN 30 days Tobacco use date assessed: 11/03/25 Dental Screening Dental Screen Date: 11/03/25 Did you have a dental visit in the last 12 months?: Yes Did you have a dental problem in the last 6 months where you did not have access to dental care?: No Was dental information given to patient?: Patient has dentist HPI lower abdominal pain HPI Details The patient is a 45 year old female presenting for follow-up on intermittent abdominal pain. She reports the pain in her stomach is sometimes more severe and sometimes absent. A recent abdominal ultrasound revealed non- obstructing gallbladder stones. The patient also reports a recent mammogram showed an abnormality, prompting a call for a follow-up visit. Findings were noted in bilateral breasts with the radiologist noting a change from prior years' mammograms and, requesting an ultrasound to further evaluate in the presence of dense breast tissue. The patient denies current headaches, stating that her pills are working well. 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 [employer] Current occupational exposures/hazards: No Cognitive needs: No Hearing needs: No Vision needs: No Questionnaire Thrive Questionnaire Date Thrive assessed: 11/03/25 I am a: Patient What is your living situation today?: I have a steady place to live Within the past 12 months, did the food you bought not last and you didn't have the money to get more?: Sometimes True Within the past 12 months, did you worry whether your food would run out before you got money to buy more?: Sometimes True Do you have trouble paying for medicines?: No Do you have trouble getting transportation to medical appointments?: No Do you have trouble paying your heating and electricity bill?: Yes Do you have trouble taking care of your child, family member or friend?: No Do you have trouble with day-to-day activities such as bathing, preparing meals, shopping, managing finances, etc.?: No Are you currently unemployed and looking for a job?: No Are you interested in more education?: Yes Please select the resources that you would like help with: Utilities Currently or been in a relationship where the following occur: No concerns reported THRIVE Score: 3 KAVITHA-7 AMB Questionnaire KAVITHA-7 Date KAVITHA - 7 assessed: 06/29/25 Source: Developed by Drs. Orlin Abdalla, Rox Moctezuma, Osiel Flores and colleagues, with an educational rubén from [employer]. Review of Systems Const Reports headache(s) (reports that this has been mild and infrequent) Eyes Denies loss of vision ENT Denies vertigo, Denies dizziness, Reports headache(s) (reports that this has been mild and infrequent) and Denies sore throat Card Denies chest pain, Denies leg edema and Denies lightheadedness Resp Denies cough, Denies hemoptysis and Denies wheezing GI Denies abdominal pain, Denies melena, Denies constipation, Denies diarrhea and Denies vomiting Denies urinary frequency, Denies dysuria and Reports urinary urgency Musc Denies arthralgias, Denies joint swelling, Denies numbness and Denies tingling Skin/Breast Denies lesions and Denies rash Neuro Denies Abnormal speech present, Denies behavioral changes, Denies vertigo, Denies dizziness, Reports headache(s) (reports that this has been mild and infrequent), Denies loss of vision, Denies memory loss, Denies numbness and Denies tingling Psych Denies anxiety, Denies behavioral changes, Denies depression, Denies memory loss and Denies panic attacks Nasir/Lymph Denies easy bleeding and Denies easy bruising Aller/Immun Denies wheezing Physical exam (Primary Care) Vital Signs: Last Vital Signs Pulse 76 11/03/25 09:27 Resp 18 11/03/25 09:27 BP 92/66 11/03/25 09:27 Pulse Ox 98 11/03/25 09:27 Oxygen Delivery Method Room Air 11/03/25 09:27 BMI result Body Mass Index 21.8 Tobacco/Smoking Status: Tobacco use Status Tobacco use date assessed 11/03/25 11/03/25 09:29 Patient Tobacco Use Status Never used Tobacco 11/03/25 09:29 e-Cigarette/Vaping Use Never Used 11/03/25 09:29 Thrive Assessment: Date of Thrive Assessment Date Thrive assessed 11/03/25 11/03/25 09:29 Currently or been in a relationship where the following occur: No concerns reported Const General: healthy appearing, no acute distress, alert and awake Nutritional Appearance: well nourished Orientation/consciousness: oriented to person, oriented to place and oriented to time HENMT Ears: TM's normal bilaterally General nose exam: Normal nasal mucous membranes and turbinates present Eyes Conjunctivae: conjunctivae normal Sclerae: sclerae normal Pupils: Equal, round and reactive pupils present Neck Neck: Yes no lymphadenopathy and Yes no JVD Thyroid: Thyroid normal Carotids: no bruits Resp Effort & Inspection: normal respiratory effort and not tachypneic Auscultation: no crackles, no rales, no rhonchi and no wheezes Cardio Rate: regular rate Rhythm: regular rhythm Heart sounds: no murmurs and normal S1 and S2 GI Palpation (GI): Soft to palpation, Tenderness to palpation present (GI) in the LLQ, in the RLQ and suprapubicly, no hepatomegaly and no splenomegaly Auscultation: normal bowel sounds General: Yes no CVA tenderness Back/Spine/Pelvis Back: no CVA tenderness Skin General skin exam: no rashes or lesions noted and dry skin Neuro General: oriented to person, oriented to place, oriented to time and CN's II-XI intact bilaterally Cranial nerves: Yes Equal, round and reactive pupils present Speech: No Abnormal speech present Gait exam (Neuro): Normal gait present Motor exam (neuro): no tremor noted Extrem Right upper extremity: full ROM Left upper extremity: full ROM Right lower extremity: full ROM; no edema Left lower extremity: full ROM; no edema Psych Mental Status: mental status grossly normal Speech and movement: Normal speech and movement present Affect: normal affect Attitude: cooperative Thought process: Normal thought process present Coding Level of Care Code Est Pt Level 3 (32207) Diagnoses Migraine with status migrainosus, not intractable, unspecified migraine type G43.901 Migraine type: unspecified Status migrainosus presence: with status migrainosus Intractability: not intractable Calculus of gallbladder without cholecystitis without obstruction K80.20 Cholelithiasis location: gallbladder Cholecystitis presence: without cholecystitis Biliary obstruction: without biliary obstruction Abnormal mammogram of both breasts R92.8 Time Spent (min) 31 Assessment & Plan Assessment & Plan (1) Migraines: Code(s): G43.909 - Migraine, unspecified, not intractable, without status migrainosus Category: Medical Qualifiers: Migraine type: unspecified Status migrainosus presence: with status migrainosus Intractability: not intractable Qualified Code(s): G43.901 - Migraine, unspecified, not intractable, with status migrainosus Plan: The patient reports that her headaches are well-controlled with her current medication. Will continue to monitor her symptoms at the next follow-up visit. Continue magnesium oxide 400 mg daily at bedtime, sumatriptan succinate 25 mg Q 2-4 p.r.n. (2) Cholelithiasis: Code(s): K80.20 - Calculus of gallbladder without cholecystitis without obstruction Category: Medical Qualifiers: Cholelithiasis location: gallbladder Cholecystitis presence: without cholecystitis Biliary obstruction: without biliary obstruction Qualified Code(s): K80.20 - Calculus of gallbladder without cholecystitis without obstruction Plan: Recent ultrasound revealed non-obstructing gallbladder stones, which may be contributing to the patient's intermittent abdominal discomfort. As there is no evidence of acute inflammation, this is a non-emergent issue. A referral will be placed to a gastroenterology specialist for further evaluation and management, including strategies to prevent stone formation. The specialist's office will contact the patient to schedule an appointment. (3) Abnormal mammogram of both breasts: Code(s): R92.8 - Other abnormal and inconclusive findings on diagnostic imaging of breast Category: Medical Plan: The patient's recent mammogram identified an area in bilateral breasts that requires further evaluation due to a change from prior studies. The presence of dense breast tissue makes imaging interpretation difficult. A follow-up breast ultrasound is recommended to better characterize the finding and is already scheduled for December 14, 2025.
== END 2025-11-03 10:10 | disposition home or self-care (01) ==
LOC: HO.HMCH 09:06
PROVIDERS: PCP Physician Assistant
DX: G43.901 Migraine, unspecified, not intractable, with status migrainosus (principal); K80.20 Calculus of gallbladder without cholecystitis without obstruction; R92.8 Other abnormal and inconclusive findings on diagnostic imaging of breast

== ENCOUNTER → 2025-11-03 09:05 | Outpatient (BNVA) | payer OTHER, SELFPAY | PROVIDERS: PCP Physician Assistant | DX: G43.901 Migraine, unspecified, not intractable, with status migrainosus (principal); K80.20 Calculus of gallbladder without cholecystitis without obstruction; R92.8 Other abnormal and inconclusive findings on diagnostic imaging of breast | CPT/HCPCS: 99212 ==